=== PATIENT | male | born 1970 ===

== ENCOUNTER 2018-05-26 10:00 | Emergency (ER) | payer OTHER ==
[~2018-05-26] VITALS: Ht 152.4 cm; Wt 108.9 kg
[2018-05-26] MEDS ORDERED: NORFLEX100MG PO (12:14)
[2018-05-26] MEDS ORDERED: KETO10TA2 PO (12:14)
[2018-05-26] MEDS ORDERED: TYLENOL EXTRA500 MG PO (12:51)
== END 2018-05-26 12:33 | disposition home or self-care (01) ==
LOC: ER 10:00
DX: R10.31 Right lower quadrant pain (principal)